=== PATIENT | male | born 1990 | race Native Hawaiian/Other Pacific Islander ===

== ENCOUNTER 2017-01-17 17:30 | Emergency (ER) | payer OTHER ==
[~2017-01-17] VITALS: Ht 172.7 cm; Wt 63.5 kg
[2017-01-17 19:04] VITALS: BP 132/64; TEMP 98.5
== END 2017-01-17 19:04 | disposition home or self-care (01) ==
LOC: ED 17:30
DX: S83.92XA Sprain of unspecified site of left knee, initial encounter (principal); X58.XXXA Exposure to other specified factors, initial encounter; Y92.098 Other place in other non-institutional residence as the place of occurrence of the external cause
CPT/HCPCS: 36415; 96372; 99283; J1885

== ENCOUNTER 2017-01-19 07:54 | Outpatient (CLI) | payer OTHER | END 2017-01-19 19:06 | disposition home or self-care (01) | LOC: MRI 07:54 | DX: M25.562 Pain in left knee (principal) ==

== ENCOUNTER 2018-06-20 08:32 | Emergency (ER) | payer OTHER ==
[~2018-06-20] VITALS: Ht 170.2 cm; Wt 59.0 kg
[2018-06-20 10:06] LABS: PLATELET COUNT 278 K/uL (142-355)
[2018-06-20 10:24] LABS: POTASSIUM 3.9 mmol/L (3.6-5.2)
[2018-06-20 11:14] VITALS: BP 95/69; TEMP 97.7
== END 2018-06-20 11:14 ==
LOC: ED 08:32
DX: F19.10 Other psychoactive substance abuse, uncomplicated (principal)
CPT/HCPCS: 36415; 80053; 80307; 81000; 85027; 93005; 96374; 96375; 96376; 99284; J2310; J3490

== ENCOUNTER 2021-06-10 10:58 | Emergency (ER) | payer OTHER ==
[~2021-06-10] VITALS: Ht 172.7 cm; Wt 61.2 kg
[2021-06-10 11:24] LABS: PLATELET COUNT 249 K/uL (142-355)
[2021-06-10 11:30] LABS: POTASSIUM 4.3 mmol/L (3.6-5.2)
[2021-06-10 12:18] VITALS: BP 118/75
== END 2021-06-10 12:28 | disposition home or self-care (01) ==
LOC: ED 10:58
PROVIDERS: Hospitalist
PROC: 2W2FX4Z Dressing of Left Hand using Bandage (ICD-10-PCS; principal; 2021-06-10)
DX: T23.262A Burn of second degree of back of left hand, initial encounter (principal); T59.91XA Toxic effect of unspecified gases, fumes and vapors, accidental (unintentional), initial encounter; T31.0 Burns involving less than 10% of body surface; X58.XXXA Exposure to other specified factors, initial encounter; Y92.89 Other specified places as the place of occurrence of the external cause
CPT/HCPCS: 80048; 80320; 85027; 90471; 90715; 96365; 96375; 96376; 99284; J0690; J1170; J2405

== ENCOUNTER 2022-08-31 14:20 | Emergency (ER) | payer OTHER | END 2022-08-31 14:53 | disposition home or self-care (01) | LOC: ED 14:20 | DX: Z53.21 Procedure and treatment not carried out due to patient leaving prior to being seen by health care provider (principal); S61.411A Laceration without foreign body of right hand, initial encounter; X58.XXXA Exposure to other specified factors, initial encounter; Y92.89 Other specified places as the place of occurrence of the external cause ==

== ENCOUNTER 2022-08-31 19:26 | Emergency (ER) | payer OTHER ==
[~2022-08-31] VITALS: Ht 172.7 cm; Wt 54.4 kg
[2022-08-31 19:56] VITALS: BP 117/72; TEMP 98.7
== END 2022-08-31 23:00 | disposition left against medical advice (07) ==
LOC: ED 19:26
DX: S61.011A Laceration without foreign body of right thumb without damage to nail, initial encounter (principal); W31.2XXA Contact with powered woodworking and forming machines, initial encounter; Y92.89 Other specified places as the place of occurrence of the external cause; Z53.29 Procedure and treatment not carried out because of patient's decision for other reasons
CPT/HCPCS: 99282; J1885